=== PATIENT | male | born 1940 | race African-American/Black ===

== ENCOUNTER 2019-03-02 11:26 | Inpatient (IN) ==
[2019-03-02] MEDS ORDERED: ONDANSETRON 4 MG/2 ML VIAL IV PRN (12:33)
[2019-03-02] MEDS ORDERED: ACETAMINOPHEN 325 MG TABLET PO PRN (12:33)
[2019-03-02] MEDS ORDERED: SODIUM CHLORIDE 0.9% 1,000 ML IV PRN (12:38)
[2019-03-02 13:12] LABS: Apearance,Urine CLOUDY (Clear); Bilirubin,Urine Negative (Negative); Blood, Urine Large mg/dL (Negative); Glucose,Urine (UA) 50 mg/dL (Negative); Ketones,Urine Negative (Negative); Nitrite,Urine Negative (Negative); Protein,Urine 100 MG/DL; RBC,Urine 533 /HPF (0-4); Urine Color Red (Yellow); Urine Specific Gravity 1.006 (1.001-1.035); Urine Urobilinogen < 2.0 EU/DL (0.2-1.0); WBC,Urine 143 /HPF (0-6)
[2019-03-02 13:30] LABS: Hematocrit 20.1 VOL% (42.0-52.0)
[2019-03-02 13:34] LABS: Hemoglobin 6.2 GM/DL (14.0-18.0)
[2019-03-02] MEDS: cefTRIAXone 1,000 MG in SYRINGE 1 EACH IV SCH (14:35)
[2019-03-02] MEDS: SODIUM CHLORIDE 0.9% 1,000 ML IV SCH (15:01)
[2019-03-02 17:23] LABS: RBC,Urine 1227 /HPF (0-4); Transitional Epi Cells,Urine Few /HPF (<1); WBC,Urine 228 /HPF (0-6)
[2019-03-02 17:26] LABS: Apearance,Urine Cloudy (Clear); Urine Color Brown (Yellow); Urine Specific Gravity 1.005 (1.001-1.035)
[2019-03-02 17:27] LABS: Bilirubin,Urine Negative (Negative); Blood, Urine Large mg/dL (Negative); Glucose,Urine (UA) Negative (Negative); Ketones,Urine Negative (Negative); Nitrite,Urine Negative (Negative); Protein,Urine >=500 MG/DL; Urine Urobilinogen 0.2 EU/DL (0.2-1.0)
[2019-03-02] MEDS: DILTIAZEM CD 120 MG CAPSULE PO SCH (20:06)
[2019-03-02] MEDS: TAMSULOSIN 0.4 MG CAPSULE PO SCH (20:07)
[2019-03-02] MEDS: LEVOFLOXACIN INJ 250 MG in PREMIX 1 EACH IV SCH (22:39)
[2019-03-03 00:02] LABS: Hematocrit 23.4 VOL% (42.0-52.0); Hemoglobin 7.6 GM/DL (14.0-18.0)
[2019-03-03 06:07] LABS: Basophils # 0.1 10*3/uL (0.0-0.2); Basophils % 0.2 % (0.0-0.8); Eosinophils % 0.1 % (0.00-10.9); Hematocrit 23.5 VOL% (42.0-52.0); Hemoglobin 7.6 GM/DL (14.0-18.0); Immature Granulocytes % 4.7 %; Immature Granulocytes Absolute 1.45 #; Lymphocytes # 0.9 10*3/uL (1.4-4.0); Lymphocytes % 2.8 % (21.2-54.2); Mean Corpuscular HGB Conc 32.3 GM/DL (32-36); Mean Corpuscular Volume 83.6 FL (87-102); Mean Platelet Volume 11.1 FL (9.6-12.0); Monocytes % 31.2 % (1.7-12.7); Platelet Count 279 T/CUMM (130-400); Red Blood Count 2.81 MC/CUMM (3.8-5.5); Red Cell Distribution Width 16.5 % (9.3-17.3)
[2019-03-03 06:44] LABS: Calcium 8.7 MG/DL (8.5-10.1); Osmolality,Calculated 275.7 MOS/KG (273-304); Risk Ratio 3.32; Thyroid Stimulating Hormone 1.86 uIU/ml (0.358-3.74); VLDL CHOLESTEROL 15.2 MG/DL
[2019-03-03 07:33] LABS: Hypochromasia 1+; Lymphocytes 9 % (20-55); Metamyelocytes 2 %; Microcytosis 1+; Myelocytes 3 %; Platelet Estimate Normal; Segmented Neutrophils 76 % (50-85); Total Cells Counted 100
[2019-03-03] MEDS: PANTOPRAZOLE 40 MG TABLET PO SCH (08:23)
[2019-03-03] MEDS: BICALUTAMIDE 50 MG TABLET PO SCH (08:23)
[2019-03-03] MEDS: TAMSULOSIN 0.4 MG CAPSULE PO SCH ×2 (08:23→20:45)
[2019-03-03] MEDS: DILTIAZEM CD 120 MG CAPSULE PO SCH ×2 (08:23→20:44)
[2019-03-03] MEDS: FINASTERIDE 5 MG TABLET PO SCH (08:23)
[2019-03-03] MEDS: SODIUM CHLORIDE 0.9% 1,000 ML IV SCH (08:28)
[2019-03-03] MEDS ORDERED: DIGOXIN 0.125 MG TABLET PO SCH (09:00)
[2019-03-03] MEDS ORDERED: SODIUM CHLORIDE 0.9% 1,000 ML IV PRN (09:08)
[2019-03-03] MEDS: predniSONE 20 MG TABLET PO SCH (10:54)
[2019-03-03] MEDS: DIGOXIN 0.125 MG TABLET PO SCH (12:06)
[2019-03-03] MEDS: cefTRIAXone 1,000 MG in SYRINGE 1 EACH IV SCH (14:48)
[2019-03-03 18:55] LABS: Hematocrit 28.3 VOL% (42.0-52.0); Hemoglobin 9.1 GM/DL (14.0-18.0)
[2019-03-03] MEDS: LEVOFLOXACIN INJ 250 MG in PREMIX 1 EACH IV SCH (20:45)
[2019-03-04] MEDS: SODIUM CHLORIDE 0.9% 1,000 ML IV SCH ×3 (02:46→21:28)
[2019-03-04 05:18] LABS: Basophils # 0.1 10*3/uL (0.0-0.2); Basophils % 0.2 % (0.0-0.8); Hematocrit 28.3 VOL% (42.0-52.0); Hemoglobin 9.2 GM/DL (14.0-18.0); Immature Granulocytes % 9.5 %; Immature Granulocytes Absolute 2.83 #; Lymphocytes # 0.9 10*3/uL (1.4-4.0); Lymphocytes % 2.9 % (21.2-54.2); Mean Corpuscular HGB Conc 32.5 GM/DL (32-36); Mean Corpuscular Volume 85.8 FL (87-102); Mean Platelet Volume 11.3 FL (9.6-12.0); Monocytes % 16.2 % (1.7-12.7); Neutrophils % 71.2 % (38.7-73.9); Platelet Count 265 T/CUMM (130-400); Red Cell Distribution Width 16.9 % (9.3-17.3); White Blood Count 29.7 T/CUMM (4-12)
[2019-03-04 05:45] LABS: Calcium 8.7 MG/DL (8.5-10.1); Osmolality,Calculated 278.7 MOS/KG (273-304)
[2019-03-04 05:49] LABS: Band Neutrophils 5 % (0-10); Lymphocytes 11 % (20-55); Platelet Estimate Normal; Segmented Neutrophils 75 % (50-85); Total Cells Counted 100
[2019-03-04] MEDS: FINASTERIDE 5 MG TABLET PO SCH (08:52)
[2019-03-04] MEDS: BICALUTAMIDE 50 MG TABLET PO SCH (08:52)
[2019-03-04] MEDS: PANTOPRAZOLE 40 MG TABLET PO SCH (08:53)
[2019-03-04] MEDS: DILTIAZEM CD 120 MG CAPSULE PO SCH ×2 (08:53→21:22)
[2019-03-04] MEDS: TAMSULOSIN 0.4 MG CAPSULE PO SCH ×2 (08:53→21:22)
[2019-03-04] MEDS: predniSONE 20 MG TABLET PO SCH (08:53)
[2019-03-04] MEDS ORDERED: FEBUXOSTAT 80 MG TABLET PO SCH (09:00)
[2019-03-04 11:22] LABS: Basophils # 0.1 10*3/uL (0.0-0.2); Basophils % 0.4 % (0.0-0.8); Hematocrit 29.4 VOL% (42.0-52.0); Hemoglobin 9.4 GM/DL (14.0-18.0); Immature Granulocytes % 9.6 %; Immature Granulocytes Absolute 3.01 #; Lymphocytes # 0.9 10*3/uL (1.4-4.0); Lymphocytes % 2.9 % (21.2-54.2); Mean Corpuscular Volume 87.8 FL (87-102); Mean Platelet Volume 10.4 FL (9.6-12.0); Monocytes % 16.4 % (1.7-12.7); Neutrophils % 70.7 % (38.7-73.9); Platelet Count 251 T/CUMM (130-400); Red Blood Count 3.35 MC/CUMM (3.8-5.5); Red Cell Distribution Width 17.2 % (9.3-17.3); White Blood Count 31.4 T/CUMM (4-12)
[2019-03-04 11:47] LABS: Band Neutrophils 2 % (0-10); Lymphocytes 5 % (20-55); Platelet Estimate Adequate; Segmented Neutrophils 73 % (50-85); Total Cells Counted 100
[2019-03-04 11:48] LABS: Hypochromasia 1+; Microcytosis 1+
[2019-03-04 12:02] LABS: Folate 11.3 NG/ML (5.4-24.0); Vitamin B12 582 PG/ML (211-911)
[2019-03-04 12:29] LABS: Sedimentation Rate-Westergren 91 MM/HR (0-20)
[2019-03-04] MEDS: DIGOXIN 0.125 MG TABLET PO SCH (14:21)
[2019-03-04] MEDS: cefTRIAXone 1,000 MG in SYRINGE 1 EACH IV SCH (14:22)
[2019-03-04] MEDS: methylPREDNISolone SOD SUC 40 MG/1 ML VIAL IV SCH (16:48)
[2019-03-05] MEDS: methylPREDNISolone SOD SUC 40 MG/1 ML VIAL IV SCH ×2 (04:43→16:00)
[2019-03-05 05:03] LABS: Basophils # 0.1 10*3/uL (0.0-0.2); Basophils % 0.3 % (0.0-0.8); Hematocrit 29.3 VOL% (42.0-52.0); Hemoglobin 9.5 GM/DL (14.0-18.0); Immature Granulocytes % 14.8 %; Immature Granulocytes Absolute 5.05 #; Lymphocytes # 0.9 10*3/uL (1.4-4.0); Lymphocytes % 2.6 % (21.2-54.2); Mean Corpuscular HGB Conc 32.4 GM/DL (32-36); Mean Corpuscular Volume 86.4 FL (87-102); Monocytes % 7.8 % (1.7-12.7); Neutrophils % 74.5 % (38.7-73.9); Platelet Count 274 T/CUMM (130-400); Red Blood Count 3.39 MC/CUMM (3.8-5.5); Red Cell Distribution Width 17.4 % (9.3-17.3); White Blood Count 34.2 T/CUMM (4-12)
[2019-03-05 05:18] LABS: Calcium 8.8 MG/DL (8.5-10.1); Osmolality,Calculated 283.4 MOS/KG (273-304)
[2019-03-05 05:28] LABS: Prostate Specific Antigen Diag 4.1 NG/ML (0-4); Testosterone < 7.0 NG/DL (241-827)
[2019-03-05 05:38] LABS: Band Neutrophils 3 % (0-10); Hypochromasia 1+; Lymphocytes 8 % (20-55); Platelet Estimate Adequate; Segmented Neutrophils 81 % (50-85); Total Cells Counted 100
[2019-03-05 05:39] LABS: Microcytosis Slight
[2019-03-05] MEDS: TAMSULOSIN 0.4 MG CAPSULE PO SCH ×2 (08:37→21:07)
[2019-03-05] MEDS: FINASTERIDE 5 MG TABLET PO SCH (08:37)
[2019-03-05] MEDS: PANTOPRAZOLE 40 MG TABLET PO SCH (08:37)
[2019-03-05] MEDS: BICALUTAMIDE 50 MG TABLET PO SCH (08:37)
[2019-03-05] MEDS: DILTIAZEM CD 120 MG CAPSULE PO SCH ×2 (08:37→21:07)
[2019-03-05] MEDS: cefTRIAXone 1,000 MG in SYRINGE 1 EACH IV SCH (13:24)
[2019-03-05] MEDS: DIGOXIN 0.125 MG TABLET PO SCH (13:25)
[2019-03-05] MEDS: SODIUM CHLORIDE 0.9% 1,000 ML IV SCH (18:06)
[2019-03-06] MEDS: methylPREDNISolone SOD SUC 40 MG/1 ML VIAL IV SCH ×2 (04:07→16:31)
[2019-03-06 05:28] LABS: Basophils # 0.3 10*3/uL (0.0-0.2); Basophils % 0.5 % (0.0-0.8); Hematocrit 28.9 VOL% (42.0-52.0); Hemoglobin 9.2 GM/DL (14.0-18.0); Immature Granulocytes % 16.1 %; Immature Granulocytes Absolute 7.63 #; Lymphocytes # 0.9 10*3/uL (1.4-4.0); Lymphocytes % 1.8 % (21.2-54.2); Mean Corpuscular HGB Conc 31.8 GM/DL (32-36); Mean Corpuscular Volume 88.1 FL (87-102); Mean Platelet Volume 10.7 FL (9.6-12.0); Monocytes % 10.5 % (1.7-12.7); NRBC # 0.03 10*3/uL; Neutrophils % 71.1 % (38.7-73.9); Platelet Count 278 T/CUMM (130-400); Red Blood Count 3.28 MC/CUMM (3.8-5.5); Red Cell Distribution Width 17.7 % (9.3-17.3)
[2019-03-06 05:35] LABS: Calcium 8.8 MG/DL (8.5-10.1); Osmolality,Calculated 286.3 MOS/KG (273-304)
[2019-03-06 05:39] LABS: White Blood Count 47.5 T/CUMM (4-12)
[2019-03-06 05:57] LABS: Anisocytosis 1+; Band Neutrophils 4 % (0-10); Lymphocytes 3 % (20-55); Macrocytosis 1+; Metamyelocytes 4 %; Ovalocytes 3+; Platelet Estimate Normal; Segmented Neutrophils 82 % (50-85); Total Cells Counted 100
[2019-03-06] MEDS: BICALUTAMIDE 50 MG TABLET PO SCH (08:15)
[2019-03-06] MEDS: FINASTERIDE 5 MG TABLET PO SCH (08:15)
[2019-03-06] MEDS: DILTIAZEM CD 120 MG CAPSULE PO SCH ×2 (08:15→21:24)
[2019-03-06] MEDS: TAMSULOSIN 0.4 MG CAPSULE PO SCH ×2 (08:15→21:24)
[2019-03-06] MEDS: PANTOPRAZOLE 40 MG TABLET PO SCH (08:15)
[2019-03-06] MEDS: cefTRIAXone 1,000 MG in SYRINGE 1 EACH IV SCH (13:41)
[2019-03-06] MEDS: SODIUM CHLORIDE 0.9% 1,000 ML IV SCH (13:42)
[2019-03-06] MEDS: DIGOXIN 0.125 MG TABLET PO SCH (13:42)
[2019-03-07] MEDS: methylPREDNISolone SOD SUC 40 MG/1 ML VIAL IV SCH (04:14)
[2019-03-07 05:23] LABS: Hematocrit 28.8 VOL% (42.0-52.0); Hemoglobin 9.4 GM/DL (14.0-18.0); Lymphocytes % 2.1 % (21.2-54.2); Mean Corpuscular HGB Conc 32.6 GM/DL (32-36); Mean Corpuscular Volume 87.5 FL (87-102); Mean Platelet Volume 10.6 FL (9.6-12.0); Monocytes % 13.1 % (1.7-12.7); Neutrophils % 67.2 % (38.7-73.9); Platelet Count 281 T/CUMM (130-400); Red Blood Count 3.29 MC/CUMM (3.8-5.5); Red Cell Distribution Width 18.2 % (9.3-17.3)
[2019-03-07 05:24] LABS: Basophils # 0.3 10*3/uL (0.0-0.2); Basophils % 0.6 % (0.0-0.8); Immature Granulocytes Absolute 9.56 #; Lymphocytes # 1.2 10*3/uL (1.4-4.0)
[2019-03-07 05:33] LABS: White Blood Count 56.4 T/CUMM (4-12)
[2019-03-07 05:53] LABS: Calcium 8.8 MG/DL (8.5-10.1); Osmolality,Calculated 289.8 MOS/KG (273-304)
[2019-03-07 06:02] LABS: Band Neutrophils 3 % (0-10); Lymphocytes 5 % (20-55); Metamyelocytes 4 %; Myelocytes 3 %; Segmented Neutrophils 79 % (50-85); Total Cells Counted 100
[2019-03-07 06:03] LABS: Hypochromasia 1+
[2019-03-07 06:04] LABS: Microcytosis 1+; Platelet Estimate Normal
[2019-03-07] MEDS: TAMSULOSIN 0.4 MG CAPSULE PO SCH (08:12)
[2019-03-07] MEDS: DILTIAZEM CD 120 MG CAPSULE PO SCH (08:12)
[2019-03-07] MEDS: PANTOPRAZOLE 40 MG TABLET PO SCH (08:13)
[2019-03-07] MEDS: FINASTERIDE 5 MG TABLET PO SCH (08:13)
[2019-03-07 08:58] LABS: Hemoglobin A1 (Alkaline) 97.6 % (96.5-98.5); Hemoglobin A2 (Alkaline) 2.4 % (1.5-3.5)
[2019-03-07 12:40] VITALS: BP 135/73
== END 2019-03-07 13:37 | disposition home health service (06) | DRG 813 ==
LOC: EDBD → EDUNIT# → N.ED 11:26 → N.EDINP 11:26 → N.5E 14:28 → SUATTDRO 03-03 09:42
PROVIDERS: ADMIT Internal Medicine; ATTEND Emergency Medicine

== ENCOUNTER 2020-12-25 14:10 | Inpatient (IN) ==
[2020-12-25] MEDS ORDERED: SODIUM CHLORIDE 0.9% 1,000 ML IV STA ×2 (14:42→16:28)
[2020-12-25 15:25] LABS: Basophils # 0.1 10*3/uL (0.0-0.2); Basophils % 0.1 % (0.0-0.8); Hematocrit 22.9 VOL% (42.0-52.0); Hemoglobin 7.1 GM/DL (14.0-18.0); Immature Granulocytes % 5.6 %; Immature Granulocytes Absolute 2.93 #; Lymphocytes # 2.5 10*3/uL (1.4-4.0); Lymphocytes % 4.7 % (21.2-54.2); Mean Corpuscular Volume 94.6 FL (87-102); Mean Platelet Volume 10.7 FL (9.6-12.0); Monocytes % 38.7 % (1.7-12.7); NRBC # 0.15 10*3/uL; Neutrophils % 50.9 % (38.7-73.9); Platelet Count 112 T/CUMM (130-400); Red Blood Count 2.42 MC/CUMM (3.8-5.5)
[2020-12-25 15:35] LABS: INR 1.3; PT Patient Result 14.7 SECS (10.5-12.0)
[2020-12-25 15:44] LABS: Albumin 2.9 G/DL (3.4-5.0); Bilirubin,Total 0.4 MG/DL (0.2-1.0); Calcium 8.2 MG/DL (8.5-10.1); Total Protein 6.7 G/DL (6.4-8.2)
[2020-12-25 16:24] LABS: Bacteria,Urine Moderate /HPF (Few); Bilirubin,Urine Negative (Negative); Blood, Urine Large mg/dL (Negative); Glucose,Urine (UA) Negative (Negative); Ketones,Urine Negative (Negative); Nitrite,Urine Negative (Negative); Protein,Urine 100 MG/DL; RBC,Urine 50 /HPF (0-4); Urine Appearance CLOUDY (Clear); Urine Color Amber (Yellow); Urine Specific Gravity 1.012 (1.001-1.035); Urine Urobilinogen < 2.0 EU/DL (0.2-1.0)
[2020-12-25] MEDS ORDERED: cefTRIAXone 1,000 MG in SODIUM CHLORIDE 0.9% 100 ML IV STA (16:27)
[2020-12-25] MEDS ORDERED: ACETAMINOPHEN 500 MG TABLET ONE (17:29)
[2020-12-25] MEDS ORDERED: ACETAMINOPHEN 500 MG TABLET PO STA (17:31)
[2020-12-25] MEDS ORDERED: ONDANSETRON 4 MG/2 ML VIAL IV PRN (18:35)
[2020-12-25] MEDS ORDERED: GLUCAGON 1 MG VIAL IM PRN (18:35)
[2020-12-25] MEDS ORDERED: ACETAMINOPHEN 325 MG TABLET PO PRN (18:35)
[2020-12-25] MEDS ORDERED: DEXTROSE 50% 25 GM/50 ML VIAL IV PRN (18:35)
[2020-12-25] MEDS ORDERED: ENOXAPARIN 40 MG/0.4 ML SYRINGE SUBCUT SCH (19:00)
[2020-12-25] MEDS: SODIUM CHLORIDE 0.45% 1,000 ML IV SCH (20:54)
[2020-12-25] MEDS: MEROPENEM 500 MG in SODIUM CHLORIDE 0.9% 100 ML IV SCH (20:58)
[2020-12-25] MEDS: DABIGATRAN 75 MG CAPSULE PO SCH (20:58)
[2020-12-26] MEDS: MEROPENEM 500 MG in SODIUM CHLORIDE 0.9% 100 ML IV SCH ×2 (04:17→17:36)
[2020-12-26 05:24] LABS: Basophils # 0.1 10*3/uL (0.0-0.2); Basophils % 0.1 % (0.0-0.8); Hematocrit 21.9 VOL% (42.0-52.0); Hemoglobin 6.5 GM/DL (14.0-18.0); Immature Granulocytes % 5.8 %; Immature Granulocytes Absolute 1.99 #; Lymphocytes # 1.8 10*3/uL (1.4-4.0); Lymphocytes % 5.1 % (21.2-54.2); Mean Corpuscular HGB Conc 29.7 GM/DL (32-36); Mean Corpuscular Volume 98.2 FL (87-102); Mean Platelet Volume 10.1 FL (9.6-12.0); NRBC # 0.11 10*3/uL; Platelet Count 94 T/CUMM (130-400); Red Blood Count 2.23 MC/CUMM (3.8-5.5); Red Cell Distribution Width 21.2 % (9.3-17.3); White Blood Count 34.2 T/CUMM (4-12)
[2020-12-26 05:58] LABS: Calcium 8.1 MG/DL (8.5-10.1); Osmolality,Calculated 277.7 MOS/KG (273-304); Potassium 4.8 MMOL/L (3.5-5.1); Thyroid Stimulating Hormone 1.03 uIU/ml (0.358-3.74)
[2020-12-26 06:01] LABS: Folate 7.87 NG/ML (5.38-24.0); Vitamin B12 1267 PG/ML (211-911)
[2020-12-26 06:10] LABS: % Iron Saturation 4.6 % (18-50); Ferritin 485.6 ng/ml (26-388)
[2020-12-26 06:52] LABS: Sedimentation Rate-Westergren 75 MM/HR (0-20)
[2020-12-26] MEDS ORDERED: SODIUM CHLORIDE 0.9% 1,000 ML IV PRN (08:08)
[2020-12-26] MEDS: DABIGATRAN 75 MG CAPSULE PO SCH (10:39)
[2020-12-26 11:43] LABS: Band Neutrophils 10 % (0-10); Lymphocytes 12 % (20-55); Metamyelocytes 12 %; Myelocytes 5 %; Platelet Estimate Adequate; Promyelocytes 5 %; Segmented Neutrophils 35 % (50-85); Total Cells Counted 100
[2020-12-26 11:44] LABS: Anisocytosis 1+; Burr Cells Few; Macrocytosis 1+
[2020-12-26 11:47] LABS: Lymphocytes 10 % (20-55); Total Cells Counted 100
[2020-12-26 11:48] LABS: Anisocytosis 1+; Macrocytosis 1+; Ovalocytes Few; Platelet Estimate Decreased
[2020-12-26 11:49] LABS: Burr Cells 1+; Polychromasia Slight
[2020-12-26] MEDS: SODIUM CHLORIDE 0.45% 1,000 ML IV SCH (16:32)
[2020-12-26 18:36] LABS: Hematocrit 26.3 VOL% (42.0-52.0); Hemoglobin 8.5 GM/DL (14.0-18.0)
[2020-12-26] MEDS: TAMSULOSIN 0.4 MG CAPSULE PO SCH (21:18)
[2020-12-27] MEDS: MEROPENEM 500 MG in SODIUM CHLORIDE 0.9% 100 ML IV SCH ×3 (00:23→11:31)
[2020-12-27 05:09] LABS: Basophils % 0.2 % (0.0-0.8); Eosinophils % 0.1 % (0.00-10.9); Hematocrit 23.8 VOL% (42.0-52.0); Hemoglobin 7.6 GM/DL (14.0-18.0); Immature Granulocytes Absolute 1.33 #; Lymphocytes # 1.5 10*3/uL (1.4-4.0); Lymphocytes % 7.7 % (21.2-54.2); Mean Corpuscular HGB Conc 31.9 GM/DL (32-36); Mean Corpuscular Volume 94.4 FL (87-102); Monocytes % 25.3 % (1.7-12.7); NRBC # 0.07 10*3/uL; Neutrophils % 59.7 % (38.7-73.9); Platelet Count 70 T/CUMM (130-400); Red Blood Count 2.52 MC/CUMM (3.8-5.5); Red Cell Distribution Width 19.3 % (9.3-17.3); White Blood Count 18.9 T/CUMM (4-12)
[2020-12-27 05:44] LABS: Calcium 8.1 MG/DL (8.5-10.1); Osmolality,Calculated 272.8 MOS/KG (273-304); Potassium 4.1 MMOL/L (3.5-5.1)
[2020-12-27] MEDS: PANTOPRAZOLE 40 MG TABLET PO SCH (08:35)
[2020-12-27] MEDS: TAMSULOSIN 0.4 MG CAPSULE PO SCH ×2 (08:35→21:18)
[2020-12-27] MEDS: FERROUS SULFATE 325 MG TABLET PO SCH (08:35)
[2020-12-27] MEDS: FINASTERIDE 5 MG TABLET PO SCH (08:36)
[2020-12-27] MEDS: DIGOXIN 0.125 MG TABLET PO SCH (08:36)
[2020-12-27] MEDS: SODIUM CHLORIDE 0.45% 1,000 ML IV SCH ×2 (08:38→10:09)
[2020-12-27 08:42] LABS: Anisocytosis 1+; Burr Cells Few; Nucleated Red Blood Cells 1 (0-5); Ovalocytes Few; Platelet Estimate Decreased; Tear Drop Cells Few; Total Cells Counted 100
[2020-12-27 08:43] LABS: Macrocytosis Slight; Smudge Cells Few
[2020-12-27] MEDS: DEXTROSE 5% NACL 0.45% 1,000 ML IV SCH ×2 (10:05→23:01)
[2020-12-27] MEDS: DILTIAZEM CD 120 MG CAPSULE PO SCH ×2 (10:06→21:18)
[2020-12-27] MEDS ORDERED: cefTRIAXone 1,000 MG in SODIUM CHLORIDE 0.9% 100 ML IV SCH (15:30)
[2020-12-28 06:12] LABS: Basophils % 0.2 % (0.0-0.8); Eosinophils % 0.2 % (0.00-10.9); Hematocrit 24.8 VOL% (42.0-52.0); Hemoglobin 7.8 GM/DL (14.0-18.0); Immature Granulocytes Absolute 1.38 #; Lymphocytes # 1.4 10*3/uL (1.4-4.0); Lymphocytes % 9.8 % (21.2-54.2); Mean Corpuscular HGB Conc 31.5 GM/DL (32-36); Mean Corpuscular Volume 94.3 FL (87-102); Mean Platelet Volume 10.9 FL (9.6-12.0); NRBC # 0.04 10*3/uL; Neutrophils % 56.8 % (38.7-73.9); Platelet Count 81 T/CUMM (130-400); Red Blood Count 2.63 MC/CUMM (3.8-5.5); Red Cell Distribution Width 19.4 % (9.3-17.3); White Blood Count 13.8 T/CUMM (4-12)
[2020-12-28 06:37] LABS: Calcium 7.8 MG/DL (8.5-10.1); Osmolality,Calculated 277.4 MOS/KG (273-304); Potassium 3.7 MMOL/L (3.5-5.1)
[2020-12-28 06:44] LABS: Band Neutrophils 2 % (0-10); Lymphocytes 10 % (20-55); Myelocytes 2 %; Platelet Estimate Decreased; Segmented Neutrophils 63 % (50-85); Total Cells Counted 100
[2020-12-28 06:45] LABS: Hypochromasia Slight; Microcytosis Slight
[2020-12-28 08:34] LABS: Hemoglobin A1 (Alkaline) 97.6 % (96.5-98.5); Hemoglobin A2 (Alkaline) 2.4 % (1.5-3.5)
[2020-12-28] MEDS ORDERED: SODIUM CHLORIDE 0.9% 1,000 ML IV PRN (10:14)
[2020-12-28] MEDS: FINASTERIDE 5 MG TABLET PO SCH (10:37)
[2020-12-28] MEDS: DIGOXIN 0.125 MG TABLET PO SCH (10:37)
[2020-12-28] MEDS: TAMSULOSIN 0.4 MG CAPSULE PO SCH (10:37)
[2020-12-28] MEDS: DILTIAZEM CD 120 MG CAPSULE PO SCH (10:37)
[2020-12-28] MEDS: FERROUS SULFATE 325 MG TABLET PO SCH (10:38)
[2020-12-28 14:05] LABS: White Blood Count 52.2 T/CUMM (4-12)
[2020-12-28] MEDS: PANTOPRAZOLE 40 MG TABLET PO SCH (14:09)
[2020-12-28 14:29] LABS: Promyelocytes 2 %
[2020-12-28 14:33] LABS: Band Neutrophils 14 % (0-10); Segmented Neutrophils 49 % (50-85)
[2020-12-28 14:34] LABS: Metamyelocytes 4 %; Myelocytes 2 %
[2020-12-28 14:42] LABS: Band Neutrophils 1 % (0-10); Lymphocytes 5 % (20-55); Metamyelocytes 5 %; Segmented Neutrophils 70 % (50-85)
[2020-12-28 20:49] VITALS: BP 108/59
== END 2020-12-28 20:55 | disposition home or self-care (01) | DRG 871 ==
LOC: EDUNIT# → EDBD → N.ED 14:10 → SUATTDRO 16:55 → N.EDINP 16:55 → N.3E 18:40
PROVIDERS: ADMIT Hospitalist; ATTEND Internal Medicine